=== PATIENT | male | born 1940 ===

== ENCOUNTER → 2023-04-22 11:59 | Outpatient (ROUT) | payer MEDICARE, SELFPAY ==
[2023-04-22 12:05] LABS: Add Manual Diff / Slide Review NO; Basophils Absolute Auto 0 /uL (0-100); Basophils Percent Auto 0.3 % (0-2); Eosinophils Absolute Auto 200 /uL (0-450); Eosinophils Percent Auto 1.5 % (2-4); Hematocrit 41.3 % (41-53); Hemoglobin 14.2 g/dL (13.5-17.5); Lymphocytes Absolute Auto 1000 /uL (1100-4500); Lymphocytes Percent Auto 7.5 % (25-40); Mean Corpuscular HGB Conc 34.3 % (30-36); Mean Corpuscular Hemoglobin 30.5 PG (26-34); Mean Corpuscular Volume 88.8 fL (80-100); Monocytes Absolute Auto 1200 /uL (0-900); Monocytes Percent Auto 8.7 % (3-14); Neutrophils Absolute Auto 11400 /uL (1500-7000); Platelet Count 232 X10^3/uL (150-400); Red Blood Cell Count 4.65 X10^6/uL (4.5-5.9); Red Cell Distribution Width 14.7 % (11.6-14.8); White Blood Cell Count 13.9 X10^3/uL (4.5-11.0)
[2023-04-22 12:11] LABS: Alanine Aminotransferase 50 IU/L (<50); Albumin 4.4 g/dL (3.5-5.0); Albumin Globulin Ratio 1.5 (1.0-2.8); Alkaline Phosphatase 80 U/L (38-126); Aspartate Aminotransferase 38 IU/L (17-59); BUN Creatinine Ratio 37.9 (6-22); Blood Urea Nitrogen 44 mg/dL (9-20); Calcium 9.7 mg/dL (8.4-10.2); Carbon Dioxide 18 mmol/L (22-32); Chloride 105 mmol/L (98-107); Estimated Glomerular Filt Rate > 60 mL/min (>60); Globulin 2.9 g/dL (1.7-4.1); Glucose 144 mg/dL (80-110); HEMOLYSIS 70 (0-50); Potassium 5.1 mmol/L (3.4-5.1); Sodium 137 mmol/L (137-145); Total Protein 7.3 g/dL (6.3-8.2)
== END ==
PROVIDERS: Family Provider Family Medicine Geriatric Medicine; PCP Family Medicine Geriatric Medicine; Visit Provider Nurse Practitioner Family
DX: R11.2 Nausea with vomiting, unspecified (principal)
CPT/HCPCS: 80053; 85025

== ENCOUNTER → 2023-04-22 20:40 | Outpatient (ROUT) | payer MEDICARE, SELFPAY ==
[2023-04-22 20:58] LABS: Appearance Urine UA CLEAR; Bilirubin Urine UA NEGATIVE (NEGATIVE); Color Urine UA YELLOW; Glucose Urine UA NEGATIVE (Negative); Ketones Urine UA TRACE (NEGATIVE); Leukocyte Esterase Urine UA NEGATIVE (NEGATIVE); Nitrite Urine UA NEGATIVE (Negative); Occult Blood Urine UA 2+ (Negative); Protein Urine UA NEGATIVE (Negative); Specific Gravity Urine UA >=1.030 (1.000-1.035); Urobilinogen Urine UA 0.2 E.U./dL (0.2)
[2023-04-22 21:36] LABS: Bacteria Urine None Seen; Culture Indicated Urine Cult Not Indicated; RBC Urine 10-30/HPF (0-5/HPF); Squamous Epithelial Cell Urine None Seen (0-5/HPF); WBC Urine 0-1/HPF (0-5/HPF)
== END ==
PROVIDERS: Visit Provider Nurse Practitioner Family
DX: N39.0 Urinary tract infection, site not specified (principal)
CPT/HCPCS: 81001

== ENCOUNTER 2023-04-24 13:00 | Inpatient (IN) | payer MEDICARE, SELFPAY ==
[2023-04-24] VITALS (77 sets, daily range): BP systolic 106–164; BP diastolic 41–72; PULSE 61–79; RESP 13–37; TEMP 35.8–36.8; O2SAT 92–99; BMI 26.6
--- NOTE | 2023-04-24 13:13 | ED_ITS ---
HPI - Abdominal Pain General Chief Complaint: Abdominal Pain Stated Complaint: Vomiting T-3 Time Seen by Provider: 04/24/23 13:10 History of Present Illness HPI narrative: Patient brought in by ambulance from [facility]. Has had 2 days of abdominal pain nausea and vomiting. Has been taking his home medications and diabetes medications. No bowel movement for the past 3 days. Complains of generalized abdominal pain. No hematemesis. No diarrhea. Denies any chest pain or back pain. He is at the assisted living portion of [facility]. He has been there for 3 years he states patient in no distress. Denies any recent fever cough cold or congestion. No urinary complaints other than he does have a indwelling Scott catheter but does not feel anything different. Patient is DNR DNI with selective treatment only. POLST form present Related Data Home Medications Medication Instructions Recorded Confirmed ASPIRIN (#ASPIRIN EC) 325 mg PO QDAY ##0 05/07/11 losartan 50 mg tablet (Cozaar) 50 mg PO QDAY ##0 05/07/11 Allergies Allergy/AdvReac Type Severity Reaction Status Date / Time No Known Drug Allergies Allergy Verified 04/24/23 13:17 Review of Systems Review of Systems Narrative: GENERAL: negative chills, fatigue, malaise, fever, sweats. HEENT: negative sinus pain, ear pain, sore throat RESPIRATORY: negative dyspnea, cough CARDIOVASCULAR: negative chest pain, palpitations GASTROINTESTINAL: Positive nausea, vomiting, abdominal pain : negative dysuria, frequency, hematuria MUSCULOSKELETAL: negative muscle or bony pain SKIN: negative rash, skin lesions NEUROLOGIC: negative weakness, numbness ROS Unobtainable: All systems reviewed & are unremarkable except as noted in HPI and below Patient History Social History Smoking Status: Never smoker Exam Narrative Exam Narrative: GENERAL: in no distress, not toxic not dyspneic HEAD: Normocephalic. EYES: Pupils equal round ENT: Mucous membranes moist. NECK: Trachea midline. CARDIOVASCULAR: Regular rate and rhythm RESPIRATORY: Clear to auscultation. Breath sounds equal bilaterally. No wheezes, rales, or rhonchi. GASTROINTESTINAL: Abdomen soft, non-tender, abdomen soft, nontender. Bowel sounds are present. No peritoneal signs. No pain out of portion to exam. EXTREMITIES: No gross deformities. BACK: No flank tenderness. NEURO: AOx3. Clear speech no facial droop SKIN: Warm and dry PSYCH: Not anxious, is cooperative Initial Vital Signs Initial Vital Signs: Vital Signs Temperature 97.4 F L 04/24/23 13:00 Pulse Rate 79 04/24/23 13:00 Respiratory Rate 14 04/24/23 13:00 Blood Pressure 125/55 L 04/24/23 13:00 Pulse Oximetry 99 04/24/23 13:00 Oxygen Delivery Method Room Air 04/24/23 13:00 Course Orders Ordered: ED Orders 04/24/23 13:11 EKG-12 Lead Stat 04/24/23 13:31 Complete Blood Count AUTO DIFF Stat Comprehensive Metabolic Panel Stat Lactate (Lactic Acid) Stat Lipase Stat Procalcitonin Stat Troponin & CK Cardiac Panel Stat 04/24/23 14:04 CT chest abd pel w con Stat 04/24/23 14:18 Urinalysis and Microscopic Stat Urine Culture Stat 04/24/23 14:45 Respiratory Panel (Film Array) Stat 04/24/23 15:19 Blood Culture Stat 04/24/23 15:45 BNP [NT-proBNP (BNP-Adult 18+)] Stat Troponin I Stat Discontinued Medications Sodium Chloride (Normal Saline 0.9%) 1,000 mls @ 1,000 mls/hr IV BOLUS ONE Stop: 04/24/23 14:10 Last Infusion: 04/24/23 14:30 Dose: Infused Documented By: Infusion: 04/24/23 14:00 Dose: 1,000 mls/hr Documented By: Infusion: 04/24/23 13:52 Dose: 0 mls/hr Documented By: Admin: 04/24/23 13:20 Dose: 1,000 mls/hr Documented By: PITO Ceftriaxone Sodium 2,000 mg/ (Sodium Chloride) 100 mls @ 200 mls/hr IV NOW ONE Stop: 04/24/23 16:27 Last Infusion: 04/24/23 17:26 Dose: Infused Documented By: Admin: 04/24/23 16:49 Dose: 200 mls/hr Documented By: PITO Sodium Chloride (Normal Saline 0.9%) 1,000 mls @ 1,000 mls/hr IV BOLUS ONE Stop: 04/24/23 18:17 Last Infusion: 04/24/23 18:14 Dose: Infused Documented By: Admin: 04/24/23 17:22 Dose: 1,000 mls/hr Documented By: PITO Ondansetron HCl (Ondansetron 4 Mg/2 Ml Inj) 4 mg IV NOW ONE Stop: 04/24/23 13:12 Last Admin: 04/24/23 13:21 Dose: 4 mg Documented By: PITO Vital Signs Vital signs: Vital Signs - 8 hr 04/24/23 13:00 04/24/23 13:09 04/24/23 13:10 Temperature 97.4 F L Pulse Rate 79 78 78 Respiratory Rate 14 24 25 H Blood Pressure 125/55 L Pulse Oximetry 99 98 97 Oxygen Delivery Method Room Air 04/24/23 13:15 04/24/23 13:15 04/24/23 13:20 Temperature Pulse Rate 73 72 Respiratory Rate 13 25 H Blood Pressure 106/49 L Pulse Oximetry 97 96 Oxygen Delivery Method Room Air 04/24/23 13:20 04/24/23 13:25 04/24/23 13:30 Temperature Pulse Rate 74 75 Respiratory Rate 22 23 Blood Pressure 111/48 L Pulse Oximetry 96 96 Oxygen Delivery Method 04/24/23 13:35 04/24/23 13:38 04/24/23 13:38 Temperature Pulse Rate 73 72 Respiratory Rate 24 23 Blood Pressure 117/56 L Pulse Oximetry 97 97 Oxygen Delivery Method Room Air 04/24/23 13:40 04/24/23 13:40 04/24/23 13:45 Temperature Pulse Rate 73 Respiratory Rate 33 H Blood Pressure 109/53 L 106/53 L Pulse Oximetry 97 Oxygen Delivery Method 04/24/23 13:45 04/24/23 13:57 04/24/23 13:58 Temperature Pulse Rate 72 75 77 Respiratory Rate 28 H 15 Blood Pressure Pulse Oximetry 97 95 Oxygen Delivery Method 04/24/23 13:58 04/24/23 14:00 04/24/23 14:00 Temperature Pulse Rate 74 Respiratory Rate 17 Blood Pressure 164/72 H 149/65 H Pulse Oximetry 98 Oxygen Delivery Method 04/24/23 14:05 04/24/23 14:05 04/24/23 14:10 Temperature Pulse Rate 70 Respiratory Rate 24 Blood Pressure 144/62 H 135/64 Pulse Oximetry 94 Oxygen Delivery Method 04/24/23 14:10 04/24/23 14:15 04/24/23 14:16 Temperature Pulse Rate 69 73 Respiratory Rate 22 37 H Blood Pressure 142/64 H Pulse Oximetry 93 Oxygen Delivery Method Room Air 04/24/23 14:16 04/24/23 14:20 04/24/23 14:21 Temperature Pulse Rate 72 72 74 Respiratory Rate 31 H 20 18 Blood Pressure Pulse Oximetry 99 97 Oxygen Delivery Method 04/24/23 14:21 04/24/23 14:25 04/24/23 14:25 Temperature Pulse Rate 71 Respiratory Rate 21 Blood Pressure 151/67 H 148/65 H Pulse Oximetry 97 Oxygen Delivery Method 04/24/23 14:31 04/24/23 14:31 04/24/23 14:35 Temperature Pulse Rate 70 69 Respiratory Rate 30 H 26 H Blood Pressure 135/62 Pulse Oximetry 94 98 Oxygen Delivery Method 04/24/23 14:40 04/24/23 14:40 04/24/23 14:45 Temperature Pulse Rate 67 70 Respiratory Rate 27 H 30 H Blood Pressure 125/59 L Pulse Oximetry 98 97 Oxygen Delivery Method 04/24/23 14:50 04/24/23 14:55 04/24/23 15:00 Temperature Pulse Rate 66 66 65 Respiratory Rate 21 29 H 29 H Blood Pressure Pulse Oximetry 98 98 98 Oxygen Delivery Method 04/24/23 15:00 04/24/23 15:05 04/24/23 15:15 Temperature Pulse Rate 70 68 Respiratory Rate 29 H 21 Blood Pressure 117/59 L Pulse Oximetry 98 98 Oxygen Delivery Method 04/24/23 15:20 04/24/23 15:21 04/24/23 15:21 Temperature Pulse Rate 65 67 Respiratory Rate 27 H 26 H Blood Pressure 134/63 Pulse Oximetry 98 97 Oxygen Delivery Method 04/24/23 15:25 04/24/23 15:30 04/24/23 15:35 Temperature Pulse Rate 65 65 68 Respiratory Rate 28 H 30 H Blood Pressure Pulse Oximetry 98 98 95 Oxygen Delivery Method 04/24/23 15:40 04/24/23 15:45 04/24/23 15:50 Temperature Pulse Rate 67 67 62 Respiratory Rate Blood Pressure Pulse Oximetry 94 98 97 Oxygen Delivery Method 04/24/23 15:55 04/24/23 16:00 04/24/23 16:04 Temperature Pulse Rate 62 61 Respiratory Rate Blood Pressure 137/64 Pulse Oximetry 98 96 Oxygen Delivery Method 04/24/23 16:04 04/24/23 16:05 04/24/23 16:10 Temperature Pulse Rate 63 62 61 Respiratory Rate Blood Pressure Pulse Oximetry 96 98 95 Oxygen Delivery Method 04/24/23 16:15 04/24/23 16:20 04/24/23 16:25 Temperature Pulse Rate 62 61 62 Respiratory Rate Blood Pressure Pulse Oximetry 97 97 97 Oxygen Delivery Method 04/24/23 16:30 04/24/23 16:35 04/24/23 16:40 Temperature Pulse Rate 70 64 61 Respiratory Rate Blood Pressure Pulse Oximetry 97 97 96 Oxygen Delivery Method 04/24/23 16:45 04/24/23 16:50 04/24/23 16:55 Temperature Pulse Rate 61 68 62 Respiratory Rate Blood Pressure Pulse Oximetry 97 95 97 Oxygen Delivery Method 04/24/23 16:56 04/24/23 16:56 04/24/23 16:56 Temperature 98.3 F Pulse Rate 64 Respiratory Rate Blood Pressure 137/65 Pulse Oximetry 95 Oxygen Delivery Method 04/24/23 17:00 04/24/23 17:00 04/24/23 17:05 Temperature Pulse Rate 61 64 Respiratory Rate Blood Pressure 133/58 L Pulse Oximetry 98 98 Oxygen Delivery Method 04/24/23 17:10 04/24/23 17:15 04/24/23 17:20 Temperature Pulse Rate 61 62 62 Respiratory Rate Blood Pressure Pulse Oximetry 98 94 94 Oxygen Delivery Method 04/24/23 17:21 04/24/23 17:21 Temperature Pulse Rate 63 Respiratory Rate 28 H Blood Pressure 138/65 Pulse Oximetry 96 Oxygen Delivery Method Room Air MDM - Abdominal Pain Lab Data 04/24/23 13:31 04/24/23 13:31 Labs: Lab Results 04/24/23 04/24/23 04/24/23 Range/Units 13:31 14:18 14:45 WBC 13.1 H (4.5-11.0) X10^3/uL RBC 4.40 L (4.5-5.9) X10^6/uL Hgb 13.4 L (13.5-17.5) g/dL Hct 39.3 L (41-53) % MCV 89.3 (80-100) fL MCH 30.4 (26-34) PG MCHC 34.1 (30-36) % RDW 14.7 (11.6-14.8) % Plt Count 213 (150-400) X10^3/uL Neut % (Auto) 83.6 H (50-75) % Lymph % (Auto) 4.6 L (25-40) % [place] % (Auto) 9.7 (3-14) % Eos % (Auto) 1.7 L (2-4) % Baso % (Auto) 0.4 (0-2) % Neut # (Auto) 44477 H (8966-4258) /uL Lymph # (Auto) 600 L (7130-6558) /uL [place] # (Auto) 1300 H (0-900) /uL Eos # (Auto) 200 (0-450) /uL Baso # (Auto) 100 (0-100) /uL Sodium 134 L (137-145) mmol/L Potassium 5.3 H (3.4-5.1) mmol/L Chloride 99 (98-107) mmol/L Carbon Dioxide 24 (22-32) mmol/L BUN 47 H (9-20) mg/dL Creatinine 1.23 (0.66-1.25) mg/dL Estimated GFR 58 L (>60) mL/min BUN/Creatinine Ratio 38.2 H (6-22) Glucose 353 H D (80-110) mg/dL Lactate 4.5 H* (0.7-2.1) mmol/L Calcium 9.9 (8.4-10.2) mg/dL Total Bilirubin 1.8 H (0.2-1.3) mg/dL AST 30 (17-59) IU/L ALT 43 (<50) IU/L Alkaline Phosphatase 78 (38-126) U/L Total Creatine Kinase < 20 L (55-170) U/L Troponin I < 0.012 (0.01-0.034) ng/mL NT-Pro-B Natriuret Pep (<450) pg/mL Total Protein 7.4 (6.3-8.2) g/dL Albumin 4.3 (3.5-5.0) g/dL Globulin 3.1 (1.7-4.1) g/dL Albumin/Globulin Ratio 1.4 (1.0-2.8) Lipase 141 (23-300) U/L Procalcitonin 0.16 (<0.5) ng/mL Urine Color Yellow Urine Appearance Clear Urine pH 5.5 (4.5-8.0) Ur Specific [place] 1.010 (1.000-1.035) Urine Protein Negative (Negative) Urine Glucose (UA) 1+ H (Negative) g/dL Urine Ketones Negative (NEGATIVE) Urine Occult Blood 3+ H (Negative) Urine Nitrate Negative (Negative) Urine Bilirubin Negative (NEGATIVE) Urine Urobilinogen 0.2 (0.2) E.U./dL Ur Leukocyte Esterase Trace H (NEGATIVE) Urine RBC 5-10/hpf H (0-5/HPF) Urine WBC 5-10/hpf H (0-5/HPF) Ur Squamous Epith Cells 1-5 /hpf (0-5/HPF) Amorphous Sediment 1+ Urine Bacteria Few (2-10) H (None) Ur Culture Indicated? Specimen cultured Chlamy pneumoniae PCR Not detected (Not Detect) Adenovirus (PCR) Not detected (Not Detect) B.parapertussis DNA PCR Not detected (Not Detecte) Coronavirus OC43 (PCR) Not detected (Not Detect) Coronavirus HKU1 (PCR) Not detected (Not Detect) Coronavirus 229E (PCR) Not detected (Not Detect) SARS-CoV-2 (PCR) Not detected (Not Detecte) Coronavirus NL63 (PCR) Not detected (Not Detect) Human Metapneumovir PCR Not detected (Not Detect) Influenza Type A (PCR) Not detected (Not Detect) Influenza Type B (PCR) Not detected (Not Detect) M. pneumoniae (PCR) Not detected (Not Detect) Parainfluenza 1 (PCR) Not detected (Not Detect) Parainfluenza 2 (PCR) Not detected (Not Detect) Parainfluenza 3 (PCR) Not detected (Not Detect) Parainfluenza 4 (PCR) Not detected (Not Detect) RSV (PCR) Not detected (Not Detect) Entero/Rhino (PCR) Not detected (Not Detect) 04/24/23 04/24/23 Range/Units 15:45 16:35 WBC (4.5-11.0) X10^3/uL RBC (4.5-5.9) X10^6/uL Hgb (13.5-17.5) g/dL Hct (41-53) % MCV (80-100) fL MCH (26-34) PG MCHC (30-36) % RDW (11.6-14.8) % Plt Count (150-400) X10^3/uL Neut % (Auto) (50-75) % Lymph % (Auto) (25-40) % [place] % (Auto) (3-14) % Eos % (Auto) (2-4) % Baso % (Auto) (0-2) % Neut # (Auto) (6731-7716) /uL Lymph # (Auto) (3673-2768) /uL [place] # (Auto) (0-900) /uL Eos # (Auto) (0-450) /uL Baso # (Auto) (0-100) /uL Sodium (137-145) mmol/L Potassium (3.4-5.1) mmol/L Chloride (98-107) mmol/L Carbon Dioxide (22-32) mmol/L BUN (9-20) mg/dL Creatinine (0.66-1.25) mg/dL Estimated GFR (>60) mL/min BUN/Creatinine Ratio (6-22) Glucose (80-110) mg/dL Lactate 3.2 H (0.7-2.1) mmol/L Calcium (8.4-10.2) mg/dL Total Bilirubin (0.2-1.3) mg/dL AST (17-59) IU/L ALT (<50) IU/L Alkaline Phosphatase (38-126) U/L Total Creatine Kinase (55-170) U/L Troponin I < 0.012 (0.01-0.034) ng/mL NT-Pro-B Natriuret Pep 253 (<450) pg/mL Total Protein (6.3-8.2) g/dL Albumin (3.5-5.0) g/dL Globulin (1.7-4.1) g/dL Albumin/Globulin Ratio (1.0-2.8) Lipase (23-300) U/L Procalcitonin (<0.5) ng/mL Urine Color Urine Appearance Urine pH (4.5-8.0) Ur Specific [place] (1.000-1.035) Urine Protein (Negative) Urine Glucose (UA) (Negative) g/dL Urine Ketones (NEGATIVE) Urine Occult Blood (Negative) Urine Nitrate (Negative) Urine Bilirubin (NEGATIVE) Urine Urobilinogen (0.2) E.U./dL Ur Leukocyte Esterase (NEGATIVE) Urine RBC (0-5/HPF) Urine WBC (0-5/HPF) Ur Squamous Epith Cells (0-5/HPF) Amorphous Sediment Urine Bacteria (None) Ur Culture Indicated? Chlamy pneumoniae PCR (Not Detect) Adenovirus (PCR) (Not Detect) B.parapertussis DNA PCR (Not Detecte) Coronavirus OC43 (PCR) (Not Detect) Coronavirus HKU1 (PCR) (Not Detect) Coronavirus 229E (PCR) (Not Detect) SARS-CoV-2 (PCR) (Not Detecte) Coronavirus NL63 (PCR) (Not Detect) Human Metapneumovir PCR (Not Detect) Influenza Type A (PCR) (Not Detect) Influenza Type B (PCR) (Not Detect) M. pneumoniae (PCR) (Not Detect) Parainfluenza 1 (PCR) (Not Detect) Parainfluenza 2 (PCR) (Not Detect) Parainfluenza 3 (PCR) (Not Detect) Parainfluenza 4 (PCR) (Not Detect) RSV (PCR) (Not Detect) Entero/Rhino (PCR) (Not Detect) Point of care testing: Point of Care Testing Glucose POC 267 MDM Narrative Medical decision making narrative: Patient brought in by ambulance from [facility]. Has had 2 days of abdominal pain nausea and vomiting. Has been taking his home medications and diabetes medications. No bowel movement for the past 3 days. Complains of generalized abdominal pain. No hematemesis. No diarrhea. Denies any chest pain or back pain. He is at the assisted living portion of [facility]. He has been there for 3 years he states patient in no distress. Denies any recent fever cough cold or congestion. No urinary complaints other than he does have a indwelling Scott catheter but does not feel anything different. Patient is DNR DNI with selective treatments only. POLST form present After history and exam CBC CMP lipase EKG troponin CT chest abdomen pelvis Zofran normal saline MDM CC: Abdominal pain nausea and vomiting Complicating co-morbidities: Diabetes Data collected from: Patient Medical records reviewed: No recent visit for this complaint Differential considered: Includes but not limited to VA dissection bowel obstruction bowel perforation colitis diverticulitis appendicitis pancreatitis Exam documented above, pertinent findings include: Nontender abdomen Lab Test results independently reviewed as above. Pertinent findings: WBC 13.1 hemoglobin 13.4 sodium 134 potassium 5.3 BUN 47 creatinine 1.23 GFR 58 glucose 353 lactic acid 4.5 total bilirubin 1.8 troponin less than 0.012 AST 30 ALT 43 procalcitonin 0.16 Urinalysis negative ketones negative nitrate trace leukocyte esterase Viral panel negative Repeat lactic acid 3.2 Independently reviewed EKG normal sinus rhythm rate [address] elevation or depression Imaging studies independently reviewed: CT chest abdomen pelvis small areas of opacity left lung base could be infectious. Compress bladder and thickened wall with luminal air secondary to Scott catheter. Consultations: 4:[address] Monroy, general surgery, he will follow in consult 4:[address] Thompson, hospitalist, will evaluate patient for admission Treatments: Zofran, 2 L normal saline Rocephin Re-evaluations: Time 4:28 p.m.. Patient is still awake alert. However failed swallow test. May be due to dementia. Keeping NPO at this time. Informed him and he does agree for admission. Patient has early sepsis. Unknown origin. IV antibiotics have been started Discussion: Appropriate for admission for observation and possible early sepsis. IV antibiotics have been started. IV fluids have been given. No vomiting at this time. Patient does agree for admission. Review with hospitalist agrees for admission. Review with general surgery and will follow in consult. Diagnosis: Abdominal pain Discharge Plan Departure Patient Disposition: Admitted as Observation Clinical Impression: Abdominal pain Qualifiers: Abdominal location: generalized Qualified Code(s): R10.84 - Generalized abdominal pain Admit Date/Time: 04/24/23 17:24 Admit Provider: Paras Thompson
[2023-04-24] MEDS: SODIUM CHLORIDE 0.9% 1,000 ML 1000 ML IV ×2 (13:20→17:22)
[2023-04-24] MEDS: ONDANSETRON 4 MG/2 ML INJ IV (13:21)
[2023-04-24 13:50] LABS: Add Manual Diff / Slide Review NO; Basophils Absolute Auto 100 /uL (0-100); Basophils Percent Auto 0.4 % (0-2); Eosinophils Absolute Auto 200 /uL (0-450); Eosinophils Percent Auto 1.7 % (2-4); Hematocrit 39.3 % (41-53); Hemoglobin 13.4 g/dL (13.5-17.5); Lymphocytes Absolute Auto 600 /uL (1100-4500); Lymphocytes Percent Auto 4.6 % (25-40); Mean Corpuscular HGB Conc 34.1 % (30-36); Mean Corpuscular Hemoglobin 30.4 PG (26-34); Mean Corpuscular Volume 89.3 fL (80-100); Monocytes Absolute Auto 1300 /uL (0-900); Monocytes Percent Auto 9.7 % (3-14); Neutrophils Absolute Auto 11000 /uL (1500-7000); Neutrophils Percent Auto 83.6 % (50-75); Platelet Count 213 X10^3/uL (150-400); Red Cell Distribution Width 14.7 % (11.6-14.8); White Blood Cell Count 13.1 X10^3/uL (4.5-11.0)
[2023-04-24 14:02] LABS: HEMOLYSIS < 15 (0-50)
--- NOTE | 2023-04-24 14:04 | DI.CT.S_ITS ---
PROCEDURE: CT CHEST ABD PEL W CON INDICATIONS: IV contrast only/sepsis TECHNIQUE: After the administration of oral and intravenous contrast, axial sections acquired from the supraclavicular neck to the pubic symphysis. Coronal and sagittal reformats were performed. For radiation dose reduction, the following was used: automated exposure control, adjustment of mA and/or kV according to patient size. COMPARISON: [facility], CT, IVP (ABD & PEL WWO CONTRAST), 12/11/2013, 13:44. [facility], CT, KIDNEY/ URETER/BLADDER, 07/16/2012, 8:54. FINDINGS: Image quality: Excellent. CHEST: Lower Neck: No enlarged lymph nodes. Thyroid: Within normal limits. Axillae: No enlarged lymph nodes. Chest Wall: Unremarkable. Lungs and Airways: Patchy areas of opacity some appearing ground-glass in appearance are prominent most notable in the right base. Pleura: No pneumothorax or pleural effusions. Heart: Heart size is normal. No pericardial effusion. Thoracic Vessels: The aorta and pulmonary arteries demonstrate normal size. Mediastinum and Frannie: No enlarged lymph nodes. Esophagus: No wall thickening. No hiatal hernia. ABDOMEN: Liver: Unremarkable. Gallbladder: Removed. Biliary ducts: Unremarkable. Pancreas: Unremarkable. Spleen: Unremarkable. Adrenal Glands: Unremarkable. Kidneys and Ureters: Unremarkable. Stomach and Bowel: Stomach, small bowel loops, and colon are unremarkable. Peritoneum: No abnormal intraperitoneal fluid. No free air. Ventral Wall: No hernia. Abdominal Nodes: No retroperitoneal or mesenteric adenopathy by size criteria. Vessels: Aorta and inferior vena cava are normal in size. PELVIS: Pelvic Organs: Prostate gland is enlarged.. Bladder: Bladder is collapsed with a Scott catheter. Air is present within the bladder. Pelvic Nodes: No enlarged lymph nodes. Miscellaneous: No inguinal hernias are seen. Bones: Unremarkable. IMPRESSION: 1. Small areas opacity are present within the left lung base. While some are thought to be related to dependent change. Others appear somewhat ground-glass in appearance which can be indicative of infection/inflammation. Recommend interval follow-up to document resolution. 2. Compressed bladder with thickened wall and luminal air. While this could be secondary to Scott catheter. Similar appearance can be seen with cystitis and clinical correlation is recommended. 3. Diverticulosis. Dictated by: Rachael Joseph M.D. on 04/24/2023 at 14:18 Approved by: Rachael Joseph M.D. on 04/24/2023 at 14:27
[2023-04-24 14:07] LABS: Alanine Aminotransferase 43 IU/L (<50); Albumin 4.3 g/dL (3.5-5.0); Albumin Globulin Ratio 1.4 (1.0-2.8); Alkaline Phosphatase 78 U/L (38-126); Aspartate Aminotransferase 30 IU/L (17-59); BUN Creatinine Ratio 38.2 (6-22); Bilirubin Total 1.8 mg/dL (0.2-1.3); Blood Urea Nitrogen 47 mg/dL (9-20); Calcium 9.9 mg/dL (8.4-10.2); Carbon Dioxide 24 mmol/L (22-32); Chloride 99 mmol/L (98-107); Creatine Kinase < 20 U/L (55-170); Estimated Glomerular Filt Rate 58 mL/min (>60); Globulin 3.1 g/dL (1.7-4.1); Glucose 353 mg/dL (80-110); Lipase 141 U/L (23-300); Potassium 5.3 mmol/L (3.4-5.1); Sodium 134 mmol/L (137-145); Total Protein 7.4 g/dL (6.3-8.2)
[2023-04-24 14:20] LABS: Troponin I < 0.012 ng/mL (0.01-0.034)
[2023-04-24 14:25] LABS: Appearance Urine UA CLEAR; Bilirubin Urine UA NEGATIVE (NEGATIVE); Color Urine UA YELLOW; Glucose Urine UA 1+ g/dL (Negative); Ketones Urine UA NEGATIVE (NEGATIVE); Leukocyte Esterase Urine UA TRACE (NEGATIVE); Nitrite Urine UA NEGATIVE (Negative); Occult Blood Urine UA 3+ (Negative); Protein Urine UA NEGATIVE (Negative); Urobilinogen Urine UA 0.2 E.U./dL (0.2); pH Urine UA 5.5 (4.5-8.0)
[2023-04-24 14:35] LABS: RBC Urine 5-10/HPF (0-5/HPF)
[2023-04-24 14:36] LABS: Amorphous Sediment Urine 1+; Bacteria Urine Few (2-10); Culture Indicated Urine Specimen Cultured; Squamous Epithelial Cell Urine 1-5 /HPF (0-5/HPF); WBC Urine 5-10/HPF (0-5/HPF)
[2023-04-24 14:55] LABS: Lactate (Lactic Acid) 4.5 mmol/L (0.7-2.1)
[2023-04-24 15:26] LABS: Procalcitonin 0.16 ng/mL (<0.5)
[2023-04-24 15:40] LABS: Adenovirus Not Detected (Not Detect); B. parapertussis Not Detected (Not Detecte); Bordetella pertussis Not Detected (Not Detect); Chlamydophila pneumoniae Not Detected (Not Detect); Coronavirus 229E Not Detected (Not Detect); Coronavirus HKU1 Not Detected (Not Detect); Coronavirus NL 63 Not Detected (Not Detect); Coronavirus OC43 Not Detected (Not Detect); Human Metapneumovirus Not Detected (Not Detect); Human Rhinovirus/Enterovirus Not Detected (Not Detect); Influenza A Not Detected (Not Detect); Influenza B Not Detected (Not Detect); Mycoplasma pneumoniae Not Detected (Not Detect); Parainfluenza Virus 1 Not Detected (Not Detect); Parainfluenza Virus 2 Not Detected (Not Detect); Parainfluenza Virus 3 Not Detected (Not Detect); Parainfluenza Virus 4 Not Detected (Not Detect); Respiratory Syncytial Virus Not Detected (Not Detect); SARS- CoV-2 Not Detected (Not Detecte)
[2023-04-24 16:16] LABS: NT-proBNP (BNP-Adult 18+) 253 pg/mL (<450); Troponin I < 0.012 ng/mL (0.01-0.034)
[2023-04-24 16:41] LABS: Reflexed Lactate in 2 Hours Y
[2023-04-24] MEDS: cefTRIAXone 2,000 MG in SODIUM CHLORIDE 0.9% 100 ML 200 MG IV (16:49)
[2023-04-24 17:01] LABS: Lactate 2HR (Lactic Acid Rflx) 3.2 mmol/L (0.7-2.1)
--- NOTE | 2023-04-24 20:38 | P.HP_ITS ---
History of Present Illness History of Present Illness Date Patient Seen: 04/24/23 Chief complaint: Vomiting T-3 Narrative: 83 y/o presented to ED from [facility] with complaints on abdominal pain that started 2 days ago. Initial workup in ED, CT abdomen including consultation with a surgeon, revealed UTI and sepsis. Patient confused on admission, unable to provide accurate history, likely encephalopathic. [facility] Medical History (Updated 04/24/23 @ 21:49 by Jose Luis Anne MD) HLD (hyperlipidemia) CAD (coronary artery disease) Enlarged prostate with urinary retention Diabetes HTN (hypertension) Social History household members: none Smoking Status: Never smoker alcohol intake: current Meds Home Medications and Allergies Home Medications Medication Instructions Recorded Confirmed Type ASPIRIN (#ASPIRIN EC) 325 mg PO QDAY ##0 05/07/11 04/24/23 History losartan 50 mg tablet (Cozaar) 50 mg PO QDAY ##0 05/07/11 04/24/23 History amlodipine 10 mg tablet 10 mg PO DAILY 04/24/23 04/24/23 History carvedilol 6.25 mg tablet 6.25 mg PO BID 04/24/23 04/24/23 History ciprofloxacin HCl 250 mg tablet 250 mg PO BID 04/24/23 04/24/23 History finasteride 5 mg tablet 5 mg PO DAILY 04/24/23 04/24/23 History metformin 1,000 mg tablet 1,000 mg PO BID 04/24/23 04/24/23 History nitroglycerin 0.4 mg sublingual 0.4 mg sublingual PRN PRN Pain 04/24/23 04/24/23 History tablet (Scale Score 1-3) rosuvastatin 10 mg tablet 10 mg PO ONCE PM 04/24/23 04/24/23 History spironolactone 50 mg tablet 50 mg PO DAILY 04/24/23 04/24/23 History tamsulosin 0.4 mg capsule 0.4 mg PO DAILY 04/24/23 04/24/23 History ticagrelor 90 mg tablet (Brilinta) 90 mg PO BID 04/24/23 04/24/23 History Allergies Allergy/AdvReac Type Severity Reaction Status Date / Time No Known Drug Allergies Allergy Verified 04/24/23 13:17 Review of Systems Review of Systems Narrative: Unobtainable due to encephalopathy Exam Vital Signs (past 8 hours): - 04/24/23 13:00 04/24/23 13:09 04/24/23 13:10 Temperature 97.4 F L Pulse Rate 79 78 78 Respiratory Rate 14 24 25 H Blood Pressure 125/55 L Pulse Oximetry 99 98 97 Oxygen Delivery Method Room Air Oxygen Flow Rate 04/24/23 13:15 04/24/23 13:15 04/24/23 13:20 Temperature Pulse Rate 73 72 Respiratory Rate 13 25 H Blood Pressure 106/49 L Pulse Oximetry 97 96 Oxygen Delivery Method Room Air Oxygen Flow Rate 04/24/23 13:20 04/24/23 13:25 04/24/23 13:30 Temperature Pulse Rate 74 75 Respiratory Rate 22 23 Blood Pressure 111/48 L Pulse Oximetry 96 96 Oxygen Delivery Method Oxygen Flow Rate 04/24/23 13:35 04/24/23 13:38 04/24/23 13:38 Temperature Pulse Rate 73 72 Respiratory Rate 24 23 Blood Pressure 117/56 L Pulse Oximetry 97 97 Oxygen Delivery Method Room Air Oxygen Flow Rate 04/24/23 13:40 04/24/23 13:40 04/24/23 13:45 Temperature Pulse Rate 73 Respiratory Rate 33 H Blood Pressure 109/53 L 106/53 L Pulse Oximetry 97 Oxygen Delivery Method Oxygen Flow Rate 04/24/23 13:45 04/24/23 13:57 04/24/23 13:58 Temperature Pulse Rate 72 75 77 Respiratory Rate 28 H 15 Blood Pressure Pulse Oximetry 97 95 Oxygen Delivery Method Oxygen Flow Rate 04/24/23 13:58 04/24/23 14:00 04/24/23 14:00 Temperature Pulse Rate 74 Respiratory Rate 17 Blood Pressure 164/72 H 149/65 H Pulse Oximetry 98 Oxygen Delivery Method Oxygen Flow Rate 04/24/23 14:05 04/24/23 14:05 04/24/23 14:10 Temperature Pulse Rate 70 Respiratory Rate 24 Blood Pressure 144/62 H 135/64 Pulse Oximetry 94 Oxygen Delivery Method Oxygen Flow Rate 04/24/23 14:10 04/24/23 14:15 04/24/23 14:16 Temperature Pulse Rate 69 73 Respiratory Rate 22 37 H Blood Pressure 142/64 H Pulse Oximetry 93 Oxygen Delivery Method Room Air Oxygen Flow Rate 04/24/23 14:16 04/24/23 14:20 04/24/23 14:21 Temperature Pulse Rate 72 72 74 Respiratory Rate 31 H 20 18 Blood Pressure Pulse Oximetry 99 97 Oxygen Delivery Method Oxygen Flow Rate 04/24/23 14:21 04/24/23 14:25 04/24/23 14:25 Temperature Pulse Rate 71 Respiratory Rate 21 Blood Pressure 151/67 H 148/65 H Pulse Oximetry 97 Oxygen Delivery Method Oxygen Flow Rate 04/24/23 14:31 04/24/23 14:31 04/24/23 14:35 Temperature Pulse Rate 70 69 Respiratory Rate 30 H 26 H Blood Pressure 135/62 Pulse Oximetry 94 98 Oxygen Delivery Method Oxygen Flow Rate 04/24/23 14:40 04/24/23 14:40 04/24/23 14:45 Temperature Pulse Rate 67 70 Respiratory Rate 27 H 30 H Blood Pressure 125/59 L Pulse Oximetry 98 97 Oxygen Delivery Method Oxygen Flow Rate 04/24/23 14:50 04/24/23 14:55 04/24/23 15:00 Temperature Pulse Rate 66 66 65 Respiratory Rate 21 29 H 29 H Blood Pressure Pulse Oximetry 98 98 98 Oxygen Delivery Method Oxygen Flow Rate 04/24/23 15:00 04/24/23 15:05 04/24/23 15:15 Temperature Pulse Rate 70 68 Respiratory Rate 29 H 21 Blood Pressure 117/59 L Pulse Oximetry 98 98 Oxygen Delivery Method Oxygen Flow Rate 04/24/23 15:20 04/24/23 15:21 04/24/23 15:21 Temperature Pulse Rate 65 67 Respiratory Rate 27 H 26 H Blood Pressure 134/63 Pulse Oximetry 98 97 Oxygen Delivery Method Oxygen Flow Rate 04/24/23 15:25 04/24/23 15:30 04/24/23 15:35 Temperature Pulse Rate 65 65 68 Respiratory Rate 28 H 30 H Blood Pressure Pulse Oximetry 98 98 95 Oxygen Delivery Method Oxygen Flow Rate 04/24/23 15:40 04/24/23 15:45 04/24/23 15:50 Temperature Pulse Rate 67 67 62 Respiratory Rate Blood Pressure Pulse Oximetry 94 98 97 Oxygen Delivery Method Oxygen Flow Rate 04/24/23 15:55 04/24/23 16:00 04/24/23 16:04 Temperature Pulse Rate 62 61 Respiratory Rate Blood Pressure 137/64 Pulse Oximetry 98 96 Oxygen Delivery Method Oxygen Flow Rate 04/24/23 16:04 04/24/23 16:05 04/24/23 16:10 Temperature Pulse Rate 63 62 61 Respiratory Rate Blood Pressure Pulse Oximetry 96 98 95 Oxygen Delivery Method Oxygen Flow Rate 04/24/23 16:15 04/24/23 16:20 04/24/23 16:25 Temperature Pulse Rate 62 61 62 Respiratory Rate Blood Pressure Pulse Oximetry 97 97 97 Oxygen Delivery Method Oxygen Flow Rate 04/24/23 16:30 04/24/23 16:35 04/24/23 16:40 Temperature Pulse Rate 70 64 61 Respiratory Rate Blood Pressure Pulse Oximetry 97 97 96 Oxygen Delivery Method Oxygen Flow Rate 04/24/23 16:45 04/24/23 16:50 04/24/23 16:55 Temperature Pulse Rate 61 68 62 Respiratory Rate Blood Pressure Pulse Oximetry 97 95 97 Oxygen Delivery Method Oxygen Flow Rate 04/24/23 16:56 04/24/23 16:56 04/24/23 16:56 Temperature 98.3 F Pulse Rate 64 Respiratory Rate Blood Pressure 137/65 Pulse Oximetry 95 Oxygen Delivery Method Oxygen Flow Rate 04/24/23 17:00 04/24/23 17:00 04/24/23 17:05 Temperature Pulse Rate 61 64 Respiratory Rate Blood Pressure 133/58 L Pulse Oximetry 98 98 Oxygen Delivery Method Oxygen Flow Rate 04/24/23 17:10 04/24/23 17:15 04/24/23 17:20 Temperature Pulse Rate 61 62 62 Respiratory Rate Blood Pressure Pulse Oximetry 98 94 94 Oxygen Delivery Method Oxygen Flow Rate 04/24/23 17:21 04/24/23 17:21 04/24/23 17:25 Temperature Pulse Rate 63 67 Respiratory Rate 28 H Blood Pressure 138/65 Pulse Oximetry 96 98 Oxygen Delivery Method Room Air Oxygen Flow Rate 04/24/23 17:30 04/24/23 17:35 04/24/23 17:40 Temperature Pulse Rate 68 69 68 Respiratory Rate Blood Pressure Pulse Oximetry 98 98 97 Oxygen Delivery Method Oxygen Flow Rate 04/24/23 17:40 04/24/23 17:45 04/24/23 17:50 Temperature Pulse Rate 69 66 Respiratory Rate Blood Pressure 148/66 H Pulse Oximetry 98 97 Oxygen Delivery Method Oxygen Flow Rate 04/24/23 17:55 04/24/23 18:00 04/24/23 18:00 Temperature Pulse Rate 66 64 Respiratory Rate Blood Pressure 148/67 H Pulse Oximetry 97 98 Oxygen Delivery Method Oxygen Flow Rate 04/24/23 18:05 04/24/23 18:10 04/24/23 18:15 Temperature Pulse Rate 70 66 72 Respiratory Rate Blood Pressure Pulse Oximetry 99 97 98 Oxygen Delivery Method Oxygen Flow Rate 04/24/23 18:20 04/24/23 18:21 04/24/23 18:21 Temperature Pulse Rate 63 65 Respiratory Rate Blood Pressure 150/67 H Pulse Oximetry 97 96 Oxygen Delivery Method Oxygen Flow Rate 04/24/23 18:25 04/24/23 18:30 04/24/23 18:35 Temperature Pulse Rate 67 64 68 Respiratory Rate 24 Blood Pressure Pulse Oximetry 99 99 97 Oxygen Delivery Method Oxygen Flow Rate 04/24/23 19:00 04/24/23 19:26 Temperature 96.4 F L Pulse Rate 62 66 Respiratory Rate 20 16 Blood Pressure 129/41 L 117/49 L Pulse Oximetry 92 97 Oxygen Delivery Method Oxygen Flow Rate 0 Oxygen Delivery Method Room Air Oxygen Flow Rate 0 Const Other: Laying in bed in no distress HENMT Other: Normocephalic Eyes Other: eomi Resp Other: normal respiratory effort Cardio Other: RRR GI Other: not distended Other: catheter Skin Other: w/o rashes Psych Other: confused, cognitive deficits Objective Labs 04/25/23 04:23 04/24/23 13:31 Labs: Laboratory Results - last 24 hr 04/24/23 04/24/23 04/24/23 13:31 14:18 14:45 WBC 13.1 H RBC 4.40 L Hgb 13.4 L Hct 39.3 L MCV 89.3 MCH 30.4 MCHC 34.1 RDW 14.7 Plt Count 213 Neut % (Auto) 83.6 H Lymph % (Auto) 4.6 L [place] % (Auto) 9.7 Eos % (Auto) 1.7 L Baso % (Auto) 0.4 Neut # (Auto) 20139 H Lymph # (Auto) 600 L [place] # (Auto) 1300 H Eos # (Auto) 200 Baso # (Auto) 100 Sodium 134 L Potassium 5.3 H Chloride 99 Carbon Dioxide 24 BUN 47 H Creatinine 1.23 Estimated GFR 58 L BUN/Creatinine Ratio 38.2 H Glucose 353 H D Lactate 4.5 H* Calcium 9.9 Total Bilirubin 1.8 H AST 30 ALT 43 Alkaline Phosphatase 78 Total Creatine Kinase < 20 L Troponin I < 0.012 NT-Pro-B Natriuret Pep Total Protein 7.4 Albumin 4.3 Globulin 3.1 Albumin/Globulin Ratio 1.4 Lipase 141 Procalcitonin 0.16 Urine Color Yellow Urine Appearance Clear Urine pH 5.5 Ur Specific [place] 1.010 Urine Protein Negative Urine Glucose (UA) 1+ H Urine Ketones Negative Urine Occult Blood 3+ H Urine Nitrate Negative Urine Bilirubin Negative Urine Urobilinogen 0.2 Ur Leukocyte Esterase Trace H Urine RBC 5-10/hpf H Urine WBC 5-10/hpf H Ur Squamous Epith Cells 1-5 /hpf Amorphous Sediment 1+ Urine Bacteria Few (2-10) H Ur Culture Indicated? Specimen cultured Chlamy pneumoniae PCR Not detected Adenovirus (PCR) Not detected B.parapertussis DNA PCR Not detected Coronavirus OC43 (PCR) Not detected Coronavirus HKU1 (PCR) Not detected Coronavirus 229E (PCR) Not detected SARS-CoV-2 (PCR) Not detected Coronavirus NL63 (PCR) Not detected Human Metapneumovir PCR Not detected Influenza Type A (PCR) Not detected Influenza Type B (PCR) Not detected M. pneumoniae (PCR) Not detected Parainfluenza 1 (PCR) Not detected Parainfluenza 2 (PCR) Not detected Parainfluenza 3 (PCR) Not detected Parainfluenza 4 (PCR) Not detected RSV (PCR) Not detected Entero/Rhino (PCR) Not detected 04/24/23 04/24/23 15:45 16:35 WBC RBC Hgb Hct MCV MCH MCHC RDW Plt Count Neut % (Auto) Lymph % (Auto) [place] % (Auto) Eos % (Auto) Baso % (Auto) Neut # (Auto) Lymph # (Auto) [place] # (Auto) Eos # (Auto) Baso # (Auto) Sodium Potassium Chloride Carbon Dioxide BUN Creatinine Estimated GFR BUN/Creatinine Ratio Glucose Lactate 3.2 H Calcium Total Bilirubin AST ALT Alkaline Phosphatase Total Creatine Kinase Troponin I < 0.012 NT-Pro-B Natriuret Pep 253 Total Protein Albumin Globulin Albumin/Globulin Ratio Lipase Procalcitonin Urine Color Urine Appearance Urine pH Ur Specific [place] Urine Protein Urine Glucose (UA) Urine Ketones Urine Occult Blood Urine Nitrate Urine Bilirubin Urine Urobilinogen Ur Leukocyte Esterase Urine RBC Urine WBC Ur Squamous Epith Cells Amorphous Sediment Urine Bacteria Ur Culture Indicated? Chlamy pneumoniae PCR Adenovirus (PCR) B.parapertussis DNA PCR Coronavirus OC43 (PCR) Coronavirus HKU1 (PCR) Coronavirus 229E (PCR) SARS-CoV-2 (PCR) Coronavirus NL63 (PCR) Human Metapneumovir PCR Influenza Type A (PCR) Influenza Type B (PCR) M. pneumoniae (PCR) Parainfluenza 1 (PCR) Parainfluenza 2 (PCR) Parainfluenza 3 (PCR) Parainfluenza 4 (PCR) RSV (PCR) Entero/Rhino (PCR) Assessment & Plan Assessment and plan (1) Acute metabolic encephalopathy: Status: Acute Plan: Presumably, not knowing his baseline, 2nd to UTI (2) UTI (urinary tract infection) due to urinary indwelling catheter: Status: Acute Plan: Rocephin Monitor cultures (3) HTN (hypertension): Status: Acute Plan: Coreg and norvasc on hold while septic (4) Diabetes: Status: Acute Plan: metformin (5) Enlarged prostate with urinary retention: Status: Acute Plan: Flomax, Finasteride, Scott, urology f/o (6) Sepsis: Status: Acute Plan: see UTI (7) CAD (coronary artery disease): Status: Acute Plan: ASA, Brillinta, NTG prn Coreg on hold due to relative hypotension / sepsis (8) HLD (hyperlipidemia): Status: Acute Quality VTE Deep Vein Thrombosis/Pulmonary Embolism Present on Admission: No
[2023-04-24] MEDS: LACTATED RINGERS 1,000 ML 100 ML IV (21:28)
[2023-04-24] MEDS: METFORMIN HCL 500 MG TABLET 1000 MG PO (21:28)
[2023-04-24] MEDS: SENNOSIDES 8.6 MG TABLET 17.2 MG PO (21:29)
[2023-04-25 04:56] LABS: Add Manual Diff / Slide Review NO; Basophils Absolute Auto 0 /uL (0-100); Basophils Percent Auto 0.5 % (0-2); Eosinophils Absolute Auto 300 /uL (0-450); Eosinophils Percent Auto 3.3 % (2-4); Hematocrit 32.1 % (41-53); Hemoglobin 11.3 g/dL (13.5-17.5); Lymphocytes Absolute Auto 800 /uL (1100-4500); Lymphocytes Percent Auto 7.9 % (25-40); Mean Corpuscular HGB Conc 35.2 % (30-36); Mean Corpuscular Hemoglobin 31.1 PG (26-34); Mean Corpuscular Volume 88.4 fL (80-100); Monocytes Absolute Auto 1200 /uL (0-900); Monocytes Percent Auto 11.4 % (3-14); Neutrophils Absolute Auto 7800 /uL (1500-7000); Neutrophils Percent Auto 76.9 % (50-75); Platelet Count 154 X10^3/uL (150-400); Red Blood Cell Count 3.63 X10^6/uL (4.5-5.9); Red Cell Distribution Width 14.4 % (11.6-14.8); White Blood Cell Count 10.2 X10^3/uL (4.5-11.0)
[2023-04-25] MEDS: LACTATED RINGERS 1,000 ML 100 ML IV (05:36)
[2023-04-25 05:40] LABS: BUN Creatinine Ratio 38.2 (6-22); Blood Urea Nitrogen 34 mg/dL (9-20); Calcium 8.8 mg/dL (8.4-10.2); Carbon Dioxide 24 mmol/L (22-32); Chloride 106 mmol/L (98-107); Estimated Glomerular Filt Rate > 60 mL/min (>60); Glucose 179 mg/dL (80-110); HEMOLYSIS < 15 (0-50); Potassium 4.4 mmol/L (3.4-5.1); Sodium 137 mmol/L (137-145)
[2023-04-25 08:00] VITALS: BP 151/52; PULSE 67; RESP 16; TEMP 36.3; O2SAT 99
[2023-04-25] MEDS: ASPIRIN EC 325 MG TABLET PO (11:36)
[2023-04-25] MEDS: METFORMIN HCL 500 MG TABLET 1000 MG PO ×2 (11:36→17:25)
[2023-04-25] MEDS: ENOXAPARIN 30 MG/0.3 ML SYRINGE SUBCUT (11:37)
[2023-04-25] MEDS: FINASTERIDE 5 MG TABLET PO (11:37)
--- NOTE | 2023-04-25 12:01 | ST.IPCSEOM ---
Visit Care Team Role Provider Type Kalyani Jarvis MD Family Provider Physician Primary Care Provider Specialty: Family Practice Address: [place] [id number], [place], [address] Email: [email or web address] Mark Johnson MD Emergency Provider Physician Referring Provider Specialty: Emergency Medicine Address: [address] [place] [address], [address] Email: [email or web address], DO Admit Provider Physician Attending Provider Specialty: Internal Medicine Address: [address] [place] [address], [address] Email: [email or web address] Diagnoses Sepsis, unspecified organism (04/24/23) Type 2 diabetes mellitus without complications (04/24/23) Hyperlipidemia, unspecified (04/24/23) Metabolic encephalopathy (04/24/23) Essential (primary) hypertension (04/24/23) Atherosclerotic heart disease of [place] coronary artery without angina pectoris (04/24/23) Urinary tract infection, site not specified (04/24/23) Benign prostatic hyperplasia with lower urinary tract symptoms (04/24/23) Other retention of urine (04/24/23) Infection and inflammatory reaction due to indwelling urethral catheter, initial encounter (04/24/23) Past Medical History (Last Updated 04/24/23 @ 21:49 by Jose Luis Anne MD) CAD (coronary artery disease) (Medical) Diabetes (Medical) Enlarged prostate with urinary retention (Medical) HLD (hyperlipidemia) (Medical) HTN (hypertension) (Medical) Speech-Language Pathology Swallow Evaluation [employer] Clinical Swallow Evaluation Start: 04/25/23 10:30 Freq: Status: Active Protocol: Document 04/25/23 11:39 (Rec: 04/25/23 12:01 [id number]) Clinical Swallow Evaluation Session Time Visit Start Time 10:45 Visit Stop Time 11:45 Total Visit Minutes 60 Referral Referring Provider hospitalist Reason for Referral concerns for dysphagia Setting Assessment Location Acute Care Visit Type Note Type Initial evaluation Next Note Type Next Note Type Treatment Note Patient Information Identification Type Name,Date of Reported by Patient/Caregiver Other Symptoms Coughing,Difficulty swallowing liquids,Difficulty swallowing solids Comment Pt denies previous swallowing difficulty, CT scan revealed ground glass opacities/infiltrates lower right lobe. Current Diet NPO The IDDSI Framework Protocol: IDDSI.1 Objective Assessment Mental Status Cooperative,Lethargic Oral Integrity Oral residue Dentition Missing teeth,Decay Lip Function Mild impairment Observation of Lips at Rest Left sided weakness/Drooping Pucker Reduced range of motion, Reduced strength Lip Retraction Reduced range of motion Alternating Pucker/Lip Retraction Incoordination Tongue Function Mild impairment Observations of Tongue at Rest Within normal limits Tongue Protrusion Reduced strength Tongue Lateralization Reduced strength, Incoordination Jaw Function Within normal limits Observation of Jaw at Rest Within normal limits Observations of Hard/Soft Palate Within normal limits Respiratory Sufficiency Mild impairment Comment Facial asymmetry very mild, left side, overall reduced movement bilaterally. Dentition in poor condition, missing several rear teeth. Reduced strength and ROM of lips and tongue. Pt demonstrated difficulty w coordination under direction likely d/t fatigue. Overall weakened but rotary chew with mild oral residue. Palatal elevation observed. Oral hygiene poor, pt states he does not brush his teeth daily and thought it may have been months. Voice weakened but WFL Food and Liquid Trials Liquids Trialed Thin (IDDSI 0) Solid Trials Purred (IDDSI 4),Regular ( IDDSI 7) Administration Type Tea spoon,Cup single sip, Controlled cup sip,Straw,Needs some assistance,Dependent feeding Oral Impairment Mildly impaired Pharyngeal Impairment Moderately impaired Pharyngeal Phase Comments cough noted with trials of thin liquids, ST trialed strategies of small sips via straw, and via teaspoon with cues to hold and to swallow hard'. No cough noted with trials of teaspoon and cues to swallow hard. Pt demonstrated difficulty w self regulation of small sips. No overt s/s of asp/pen noted with solids, however d/t extreme fatigue, recommend thins/water only, puree solids following agressive oral care, with feeding assist. Fatigue/Endurance Severe fatigue Comment Pt does not appear stong enough to participate in an MBS today, ST to revisit tomorrow. The IDDSI Framework Protocol: IDDSI.1 Findings Swallowing Function Oropharyngeal phase dysphagia Severity of Swallow Impairment Mildly-moderately impaired Contributing Factors to Swallow Reduced alertness or attention Impairment ,Difficulty following directions,Reduced oral strength/coordination/ sensation,Impaired airway protection Prognosis Fair Comment Pt demonstrated oropharyngeal dysphagia as demonstrated by poor bolus control and s/s of asp/pen with thin liquids, mitigated by compensatory strategies of liquids via teaspoon and cues to swallow hard, with fully upright positioning. While silent aspiration cannot be ruled out without an MBS, pt does not appear strong enough today to participate. ST educated pt on risks vs benefits of thickened liquids (slowed transit so he may not need to rely on teaspoon liquid intake but with an increased risk of aspiration if they are aspirated while thin liquids following oral care reduces the risk of any aspiration developing into a PNA, especially if liquids are kept with water only). Pt in agreement with the oral care/ thin water at his point, with review as he gets stronger. While pt stated he has had a stroke, deficits appear largely related to generalized weakness, rather than functional deficits d/t a stroke. Pt appears safest on puree solids given extreme fatigue, and is in agreement for this diet level, again to be reviewed as he becomes stronger. Pt at this time will require 1:1 assist with all intake. ST to reassess again tomorrow. Impact on Safety and Functioning Risk for aspiration,Risk for inadequate nutrition/hydration Recommendations Instrumental Assessment Yes Swallowing Treatment Yes Frequency 5x/wk Recommended Solids Pureed (IDDSI 4) Recommended Liquids Thin (IDDSI 0) Other Recommendations water only via teaspoon following aggressive oral care Safety Precautions/Swallowing Feed only when alert,Remain Recommendations upright (90 degrees) during all oral intake,1 to 1 feeding assistance Medication Recommendations As Tolerated Education Patient/Caregiver Education Patient expressed understanding of evaluation, Patient expressed agreement with goals & treatment plans Goals Short-term Goals 1.Patient will utilize compensatory strategies given mild/mod verbal, and visual cues with optimum safety and efficiency of swallowing function on P.O. intake with min/no overt signs and symptoms of aspiration for the highest appropriate diet level 2. As able, Patient will complete a Modified Barium Swallow Evaluation of the Swallow to fully assess physiology and anatomy of the swallow and to determine the appropriate diet and/or appropriately targeted rehabilitation exercises. Long-term Goals Patient will maintain adequate hydration/nutrition with optimum safety and efficiency of swallowing function on P.O. intake with min/no overt signs and symptoms of aspiration for the highest appropriate diet level
[2023-04-25 12:42] VITALS: BP 135/43; PULSE 65; RESP 15; TEMP 36.8; O2SAT 96
--- NOTE | 2023-04-25 13:52 | PT.IIE ---
Current Diagnoses Sepsis, unspecified organism (04/24/23) Type 2 diabetes mellitus without complications (04/24/23) Hyperlipidemia, unspecified (04/24/23) Metabolic encephalopathy (04/24/23) Essential (primary) hypertension (04/24/23) Atherosclerotic heart disease of cheesh-na coronary artery without angina pectoris (04/24/23) Urinary tract infection, site not specified (04/24/23) Benign prostatic hyperplasia with lower urinary tract symptoms (04/24/23) Other retention of urine (04/24/23) Infection and inflammatory reaction due to indwelling urethral catheter, initial encounter (04/24/23) Medical History (Last Updated 04/24/23 @ 21:49 by Jose Luis Anne MD) CAD (coronary artery disease) Diabetes Enlarged prostate with urinary retention HLD (hyperlipidemia) HTN (hypertension) Physical Therapy Inpatient Evaluation/Re-Eval M1 PT/OT-IP Prior Functional Status Start: 04/25/23 13:57 Freq: NEEDED Status: Active Protocol: Document 04/25/23 13:57 AB (Rec: 04/25/23 14:39 AB [id number]) Medical Review Prior Functional Status Medical History Reviewed Yes Communication Pt is able to communicate needs but is poor historian. Mobility and Gait Pt is poor historian and is unable to provide accurate PLOF. He states he uses a w/c and walker to get around, but unable to describe when he uses each. However, per [facility] pt did not ambulate and only performed stand pivot transfer. Activities of Daily Living and IADL's Pt is poor historian and is unable to provide accurate PLOF. Prior Functional Level (Other details) Pt is poor historian and is unable to provide accurate PLOF. Social History Household Members none Living Arrangements Assisted Living Additional Social History Comment Pt was previously at [facility] prior to admission, but lived at [facility] prior to that. Pt is poor historian and is unable gather social history. M2 PT-IP Current Condition Start: 04/25/23 13:57 Freq: NEEDED Status: Active Protocol: Document 04/25/23 13:57 AB (Rec: 04/25/23 14:39 AB [id number]) Physical Therapy Current Condition Current Condition Evaluation Date 04/25/23 Treatment Diagnosis abdominal pain; generalized weakness Onset Date 04/24/23 M3 PT-IP Subjective Start: 04/25/23 13:57 Freq: NEEDED Status: Active Protocol: Document 04/25/23 13:57 AB (Rec: 04/25/23 14:39 AB [id number]) Subjective Physical Therapy Visit Type Type Initial Evaluation Visit Start Time 13:30 Visit Stop Time 13:52 Total Visit Minutes 22 Physical Therapy Visit Comments Patient Comments Pt is agreeable to PT eval. He denies having any pain currently. Therapy Pain Assessment Pain When Pain Assessed At Rest Pain Present Pain Present Denied Pain M4 PT-IP Mobility and Gait Start: 04/25/23 13:57 Freq: NEEDED Status: Active Protocol: Document 04/25/23 13:57 AB (Rec: 04/25/23 14:39 AB [id number]) PT-Bed Mobility Assessment Rolling Level of Assist Maximal Assistance,1 Person Assistance,2 Person Assistance Supine to Sit Supine to Sit Maximum Assistance,2 Person Assistance,Head of Bed Elevated,Bedrails Sit to Supine Sit to Supine Moderate Assistance,2 Person Assistance Scooting Scooting Up and Down in Bed Dependent PT-Transfer Assessment Comments Mobility Comments The pt required maxA x2 to roll in bed and to sit at EOB due to reports of weakness and fatigue, with assistance from PT and [employer]. Once sitting at EOB, the pt required modA for static sitting balance, but then is able to sit modified independent while holding on to bed rails. He requires cues to open his eyes while performing mobility and sitting at EOB. PT encouraged pt to trial STS, however pt refused and laid back in bed before PT and [employer] were ready to assist him to bed demonstrating impulsivity. The pt was then assisted to comfortable position in bed with modA x2, but was dependent to scoot up in bed. At end of session, pt was left in care of [employer]. Gait Assessment Comments Gait Comments Unable to perform due to weakness and fatigue. Stair Climbing Assessment Comments Stair Climbing Comments Unable to perform due to weakness and fatigue. PT-Balance Assessment Sitting Balance and Reactions Static Sitting Balance Ability Fair Dynamic Sitting Balance Ability Poor M5 PT-IP Objective Assessments Start: 04/25/23 13:57 Freq: NEEDED Status: Active Protocol: Document 04/25/23 13:57 AB (Rec: 04/25/23 14:39 AB [id number]) Orientation Orientation/Cognition Level of Alertness Lethargic Orientation Name Language Function Ability No Deficits Noted Safety Awareness Decreased Safety Awareness Memory Description Short Term Impaired Gross Range of Motion Upper Extremity ROM Assessment Within Functional Limits Lower Extremity ROM Assessment Within Functional Limits Strength Upper Extremity Strength Assessment Bilaterally Impaired Lower Extremity Strength Assessment Bilaterally Impaired M6 PT-IP Treatment Start: 04/25/23 13:57 Freq: NEEDED Status: Active Protocol: Document 04/25/23 13:57 AB (Rec: 04/25/23 14:39 AB [id number]) Physical Therapy Treatment Education Education Provided Safety Brace Education Patient M7 PT-IP Assessment and Plan Start: 04/25/23 13:57 Freq: NEEDED Status: Active Protocol: Document 04/25/23 13:57 AB (Rec: 04/25/23 14:39 AB [id number]) PT Summary Assessment and Plan Potential Rehabilitation Potential Fair Status of Condition at Evaluation Evolving Summary Impairments Pain,ROM,Strength,Balance,Bed Mobility,Transfers,Gait, Activity Tolerance Assessment Summary Mark King is an 83 year old male patient with abdominal pain and generalized weakness, who is a resident at [facility]. The pt demonstrates significant weakness and endurance deficits, as he is currently maxA x2 to dependent to perform bed mobility. No further mobility was performed due to weakness and fatigue. Per [facility], the pt's PLOF was very limited, as he only performed stand pivot transfers and was mostly sedentary. Based on his current level of function, PT recommends discharge to SNF to improve his level of function at this time. He would benefit from skilled PT during his hospitalization to improve to his highest level of function. Goals Bed Mobility Goal Minimal Assistance,Moderate Assistance Transfer Goal Maximal Assistance,Front Wheeled Walker Other Goals Pt to perform bed mobility with min-modA with use of bed rails in order to decrease risk for wounds. Pt to perform stand pivot transfer with maxA x2 and FWW in order to show improving strength and ability to perform functional mobility. Days to Meet Goals 10 Frequency of Treatment Frequency Of Treatment Once a Day Treatment Plan Physical Therapy Treatment Plan Bed Mobility Training,Transfer Training,Gait Training, Therapeutic Exercise,Balance Retraining,Discharge Planning, Hot or Cold Pack,Neuromuscular Re-ed,Coordination Retraining ,Manual Therapy Precautions Other Precautions Fall risk Discharge Recommendations PT Discharge Recommendations SNF Rehab
--- NOTE | 2023-04-25 14:23 | P.PN_ITS ---
Subjective Subjective Interval history: 83 M with PMH of DM, HTN, BPH, CAD, cognitive impairment who presented with abdominal pain. He presented from [facility]. He reports improvement today, with no abdominal pain. He does feel a bit weak and tired but overall feeling improved. Exam Vital Signs (past 8 hours): - 04/25/23 08:00 04/25/23 12:42 Temperature 97.4 F L 98.2 F Pulse Rate 67 65 Respiratory Rate 16 15 Blood Pressure 151/52 H 135/43 L Pulse Oximetry 99 96 Oxygen Flow Rate 0 0 Oxygen Delivery Method Room Air Oxygen Flow Rate 0 Narrative Exam Narrative: General:? Patient is well developed and well nourished, in no distress at this time. HEENT:? Normocephalic, atraumatic, extraocular muscles intact, oral pharynx is clear and mucous membranes are moist. Neck: supple and symmetric, trachea is midline, no cervical adenopathy. Negative for JVD Chest:? Normal AP diameter and contour without kyphoscoliosis, no tachypnea, equal chest rise bilaterally. Lungs:? CTA b/l no wheezing rhonchi or rales. Cardio:?RRR no m/r/g. Abdomen: S NT ND. No CVA tenderness. Musculoskeletal:? Muscle strength and tone are equal within normal limits, no deformity. Extremities: No edema or joint effusions. No cyanosis or clubbing. Skin:? Pale,? Warm to touch,dry and intact without rashes, ulcerations or petechiae.? Neuro:? Alert and orientated to name, location, and year.? sensation to touch intact in all extremities, no gross deficits noted of cranial nerves. Psych:? Patient has a well-kept appearance, appropriate affect, mental status attitude thought context and judgment are appropriate for age. Objective Labs 04/25/23 04:23 04/25/23 04:23 Labs: Laboratory Results - last 24 hr 04/24/23 04/24/23 04/24/23 13:31 14:18 14:45 WBC RBC Hgb Hct MCV MCH MCHC RDW Plt Count Neut % (Auto) Lymph % (Auto) [place] % (Auto) Eos % (Auto) Baso % (Auto) Neut # (Auto) Lymph # (Auto) [place] # (Auto) Eos # (Auto) Baso # (Auto) Sodium Potassium Chloride Carbon Dioxide BUN Creatinine Estimated GFR BUN/Creatinine Ratio Glucose Lactate 4.5 H* Calcium Troponin I NT-Pro-B Natriuret Pep Procalcitonin 0.16 Urine Color Yellow Urine Appearance Clear Urine pH 5.5 Ur Specific Schuyler 1.010 Urine Protein Negative Urine Glucose (UA) 1+ H Urine Ketones Negative Urine Occult Blood 3+ H Urine Nitrate Negative Urine Bilirubin Negative Urine Urobilinogen 0.2 Ur Leukocyte Esterase Trace H Urine RBC 5-10/hpf H Urine WBC 5-10/hpf H Ur Squamous Epith Cells 1-5 /hpf Amorphous Sediment 1+ Urine Bacteria Few (2-10) H Ur Culture Indicated? Specimen cultured Chlamy pneumoniae PCR Not detected Adenovirus (PCR) Not detected B.parapertussis DNA PCR Not detected Coronavirus OC43 (PCR) Not detected Coronavirus HKU1 (PCR) Not detected Coronavirus 229E (PCR) Not detected SARS-CoV-2 (PCR) Not detected Coronavirus NL63 (PCR) Not detected Human Metapneumovir PCR Not detected Influenza Type A (PCR) Not detected Influenza Type B (PCR) Not detected M. pneumoniae (PCR) Not detected Parainfluenza 1 (PCR) Not detected Parainfluenza 2 (PCR) Not detected Parainfluenza 3 (PCR) Not detected Parainfluenza 4 (PCR) Not detected RSV (PCR) Not detected Entero/Rhino (PCR) Not detected 04/24/23 04/24/23 04/25/23 15:45 16:35 04:23 WBC 10.2 RBC 3.63 L Hgb 11.3 L Hct 32.1 L MCV 88.4 MCH 31.1 MCHC 35.2 RDW 14.4 Plt Count 154 Neut % (Auto) 76.9 H Lymph % (Auto) 7.9 L [place] % (Auto) 11.4 Eos % (Auto) 3.3 Baso % (Auto) 0.5 Neut # (Auto) 7800 H Lymph # (Auto) 800 L [place] # (Auto) 1200 H Eos # (Auto) 300 Baso # (Auto) 0 Sodium 137 Potassium 4.4 Chloride 106 Carbon Dioxide 24 BUN 34 H Creatinine 0.89 Estimated GFR > 60 BUN/Creatinine Ratio 38.2 H Glucose 179 H D Lactate 3.2 H Calcium 8.8 Troponin I < 0.012 NT-Pro-B Natriuret Pep 253 Procalcitonin Urine Color Urine Appearance Urine pH Ur Specific Schuyler Urine Protein Urine Glucose (UA) Urine Ketones Urine Occult Blood Urine Nitrate Urine Bilirubin Urine Urobilinogen Ur Leukocyte Esterase Urine RBC Urine WBC Ur Squamous Epith Cells Amorphous Sediment Urine Bacteria Ur Culture Indicated? Chlamy pneumoniae PCR Adenovirus (PCR) B.parapertussis DNA PCR Coronavirus OC43 (PCR) Coronavirus HKU1 (PCR) Coronavirus 229E (PCR) SARS-CoV-2 (PCR) Coronavirus NL63 (PCR) Human Metapneumovir PCR Influenza Type A (PCR) Influenza Type B (PCR) M. pneumoniae (PCR) Parainfluenza 1 (PCR) Parainfluenza 2 (PCR) Parainfluenza 3 (PCR) Parainfluenza 4 (PCR) RSV (PCR) Entero/Rhino (PCR) [facility] Medical History (Updated 04/24/23 @ 21:49 by Jose Luis Anne MD) HLD (hyperlipidemia) CAD (coronary artery disease) Enlarged prostate with urinary retention Diabetes HTN (hypertension) Social History household members: none Smoking Status: Never smoker alcohol intake: current Assessment & Plan Assessment & Plan narrative: (1) Sepsis secondary to acute cystitis with Acute metabolic encephalopathy and HORACIO - patient's mentation has improved with initial therapies. - continue cefitraxone. - follow up any cultures - continue to follow WBC elevation and renal function with CBC and CMP. - PT / OT evaluation ordered - Cr 1.21 on admit, improved to 0.89 today. (2) HTN (hypertension): Continue to hold home coreg, alodipine, losartan in setting of sepsis. Restart if hypertensive. (4) Diabetes: okay to continue metformin. Initial BMP >300, improved today. Continue to follow blood glucose levels. (5) Enlarged prostate with urinary retention: Flomax, Finasteride, Scott, urology f/o (7) CAD (coronary artery disease): continue home ASA, Brillinta, NTG prn Coreg on hold due to relative hypotension / sepsis (8) HLD (hyperlipidemia): continue home statin Code: Full, surrogate is patient's family Rito. DVT: Lovenox daily Dispo: admitted inpatient, hopeful for return to SNF tomorrow depending on progress over the coming day. Quality VTE Deep Vein Thrombosis/Pulmonary Embolism Present on Admission: No
--- NOTE | 2023-04-25 14:55 | CM.DANOTE ---
Initial DCP Assessment Note Pt is an 83 yo male, had been living at [facility] for years until recent CVA, hospitalization and transfer to [facility] 3 weeks ago. Patient presents from [facility] with Acute metabolic encephalopathy, admitted for management of UTI. PCP: uLcia Jarvis Payer: MCR/ULZ MARINAP Reviewed chart, placed call to patient's sister Jennifer Covarrubias P [phone] who had discussed patient with nursing this morning, received following information: Patient had been living at [facility] until recently. Patient had recent stroke, requiring hospitalization and eventual transfer to [facility]. Sister unable to give this CHIP CRUSHER OPERATOR a valid report on baseline cognition, explains that patient has been somewhat private for quite some time. Sister jennifer lives in [place], Jennifer reports that patient's DPOA is kong Davis P [phone], who lives in [place]. Patient has a brother that lives in [place] that is not involved. Patient has never had a spouse or children. Placed call to Shayla at [facility]. Patient is welcome back to [facility] for ongoing rehab. December faxed over patient's POLST which states DNR and patient's advanced directives naming nephew Grzegorz DPOA. Plan: Anticipate that patient will discharge back to [facility] Saturday, need to review plan with patient's nephew/DPOA Grzegorz. Likely via wheelchair van, no PASRR needed. Therapies consulted and recommending return to SNF level of care and rehab. SADA Goins Discharge Planning/Care Management CM Discharge Assessment Start: 04/25/23 11:26 Freq: Status: Active Protocol: Document 04/25/23 11:26 LILLIE (Rec: 04/25/23 14:55 LILLIE [id number]) Discharge Planning Assessment Assigned Block Engraver SADA Walker DPESTUARDO/Assigned Designee Name Roque Daviskong Contact Information [phone] Advance Directives? No Advance Directives on File No: Requested History Provided By Family Member,Medical Record Prior Living Arrangements Skilled Nurse Facility Household Members none Facility Name Admitted From: [facility] Independent with ADL's No Is patient alert and oriented? Yes: Some mild confusion at base per [facility] staff Patient/Family Preference Care Home Facility Comment Back to [facility] to continue rehab Barriers to Discharge No Comment Accepted back to [facility] , no PASRR needed Discharge Plan Care Home Facility Transportation Arrangement Wheelchair van Referrals Initiated None needed
--- NOTE | 2023-04-25 15:04 | OT.IPNOTE ---
Spoke to nurse at [facility] regarding pt's status. Per nurse pt needing assist for feeding,grooming,and two person assist for all dressing ,toileting , and bathing needs. Pt just orientated to his name and at times able to follow simple commands. Pt therefore at baseline for OT needs and therefore discharge OT eval orders, hospitalist and case management coordinator informed. No charge
[2023-04-25 16:30] VITALS: BP 140/57; PULSE 86; RESP 20; TEMP 36.2; O2SAT 96
[2023-04-25] MEDS: cefTRIAXone 1,000 MG in SODIUM CHLORIDE 0.9% 100 ML 200 MG IV (17:25)
[2023-04-25 19:00] VITALS: BP 148/61; PULSE 88; RESP 18; TEMP 36.2; O2SAT 96
--- NOTE | 2023-04-25 19:19 | PC.NURSE ---
RT notified to assess patient while sleeping appeared to have obvious signs of sleep apnea (holding breath for a couple of seconds) however 02 saturation recovered quickly and no recommendations were made.
[2023-04-25 21:01] VITALS: BP 154/57; PULSE 84; RESP 16; TEMP 35.9; O2SAT 96
[2023-04-25] MEDS: SENNOSIDES 8.6 MG TABLET 17.2 MG PO (21:18)
[2023-04-25] MEDS: ATORVASTATIN 20 MG TABLET 10 MG PO (21:18)
[2023-04-25] MEDS: TAMSULOSIN 0.4 MG CAPSULE PO (21:18)
[2023-04-26 01:00] VITALS: PULSE 89; RESP 16; TEMP 36.4; O2SAT 97
[2023-04-26 05:14] LABS: Add Manual Diff / Slide Review NO; Basophils Absolute Auto 0 /uL (0-100); Basophils Percent Auto 0.5 % (0-2); Eosinophils Absolute Auto 300 /uL (0-450); Eosinophils Percent Auto 3.8 % (2-4); Hematocrit 30.5 % (41-53); Hemoglobin 10.7 g/dL (13.5-17.5); Lymphocytes Absolute Auto 800 /uL (1100-4500); Mean Corpuscular Hemoglobin 30.8 PG (26-34); Monocytes Absolute Auto 800 /uL (0-900); Monocytes Percent Auto 9.9 % (3-14); Neutrophils Absolute Auto 6200 /uL (1500-7000); Neutrophils Percent Auto 75.8 % (50-75); Platelet Count 145 X10^3/uL (150-400); Red Blood Cell Count 3.47 X10^6/uL (4.5-5.9); Red Cell Distribution Width 14.5 % (11.6-14.8); White Blood Cell Count 8.1 X10^3/uL (4.5-11.0)
[2023-04-26 05:19] LABS: BUN Creatinine Ratio 25.7 (6-22); Blood Urea Nitrogen 19 mg/dL (9-20); Calcium 8.5 mg/dL (8.4-10.2); Carbon Dioxide 26 mmol/L (22-32); Chloride 104 mmol/L (98-107); Estimated Glomerular Filt Rate > 60 mL/min (>60); Glucose 135 mg/dL (80-110); HEMOLYSIS < 15 (0-50); Potassium 4.5 mmol/L (3.4-5.1); Sodium 135 mmol/L (137-145)
[2023-04-26 05:31] VITALS: BP 151/53; PULSE 74; RESP 17; TEMP 36.3; O2SAT 97
[2023-04-26 08:21] VITALS: BP 157/53
[2023-04-26] MEDS: ASPIRIN EC 325 MG TABLET PO (08:53)
[2023-04-26] MEDS: ENOXAPARIN 40 MG/0.4 ML SYRINGE SUBCUT (08:53)
[2023-04-26] MEDS: FINASTERIDE 5 MG TABLET PO (08:53)
[2023-04-26] MEDS: METFORMIN HCL 500 MG TABLET 1000 MG PO (08:53)
--- NOTE | 2023-04-26 10:15 | CM.DPC ---
Addendum entered by Bethanie Moran R.N. 04/26/23 10:41: Received DC orders, received signed med sheets. Confirmed pick up man time for 1130, received report number. Updated nurseShadia. Faxed over DC Summary and signed med sheets to [facility]. Original Note: DCP Cont: Patient may be medically ready for discharge today. Spoke to Shayla at [facility], can pick him up at 11:30, updated Dr. Armendariz, and white board at [facility], have number for report, will give to nurseJennifer. Awaiting DC orders, once received, will send to [facility]. No PASSR needed, since patient is a readmit. P: DCP to continue to follow. Plan is for patient to return back to [facility] today, once orders are receive with pick up man scheduled at 1130. Bethanie Moran RN/Area Cleaner
--- NOTE | 2023-04-26 10:27 | PM.DS.1 ---
History of Present Illness History of Present Illness Date Patient Seen: 04/26/23 Time Patient Seen: 10:27 Chief complaint: Vomiting T-3 Narrative: Per admitting provider, 83 y/o presented to ED from [facility] with complaints on abdominal pain that started 2 days ago. Initial workup in ED, CT abdomen including consultation with a surgeon, revealed UTI and sepsis. Patient confused on admission, unable to provide accurate history, likely encephalopathic. Discharge Providers Provider Date of admission: 04/24/23 17:24 Discharge Date: 04/26/23 Primary care physician: Kalyani Jarvis MD Consults: 04/25/23 05:50 Consult to Speech Therapy Evaluate & Treat Comment: failed bedside swallow eval. Physician Instructions: Evaluate and treat 04/25/23 10:39 Consult to Occupational Therapy Evaluate & Treat Comment: Physician Instructions: Evaluate and treat Consult to Physical Therapy Evaluate & Treat Comment: Physician Instructions: Evaluate and Treat Discharge provider: Peyman Armendariz DO Summary Hospital Course Discharge Diagnosis: (1) Sepsis secondary to acute cystitis with Acute metabolic encephalopathy and HORACIO (2) HTN (hypertension): (3) Diabetes, type 2 (4) Enlarged prostate with urinary retention: (5) CAD (coronary artery disease): (6) HLD (hyperlipidemia): Hospital Course: 83 M with PMH of DM, HTN, BPH, CAD, cognitive impairment who presented with abdominal pain and counfusion from local SNF. He was found to have sepsis due to a urinary tract infection with his encephalopathy and HORACIO improving with fluids and antibiotic therapies. Given improvement on ceftriaxone, he was discharged to complete total 7 day course of antibiotics with cefdinir. Urine cultures have a 20K CFU gram positive bacilli, and was not further evaluated in the lab. He can resume home antihypertensives after discharge after many were held here. No other home medications were changed during this admission. Continued outpatient follow up with urology is recommended. Time Spent with Patient Time spent: Greater than 30 minutes Exam Vital Signs (past 8 hours): - 04/26/23 05:31 04/26/23 08:21 Temperature 97.4 F L Pulse Rate 74 Respiratory Rate 17 Blood Pressure 151/53 H 157/53 H Pulse Oximetry 97 Oxygen Delivery Method Room Air Oxygen Flow Rate 0 Narrative Exam Narrative: General:? Patient is well developed and well nourished, in no distress at this time. HEENT:? Normocephalic, atraumatic, extraocular muscles intact, oral pharynx is clear and mucous membranes are moist. Neck: supple and symmetric, trachea is midline, no cervical adenopathy. Negative for JVD Chest:? Normal AP diameter and contour without kyphoscoliosis, no tachypnea, equal chest rise bilaterally. Lungs:? CTA b/l no wheezing rhonchi or rales. Cardio:?RRR no m/r/g. Abdomen: S NT ND. No CVA tenderness. Musculoskeletal:? Muscle strength and tone are equal within normal limits, no deformity. Extremities: No edema or joint effusions. No cyanosis or clubbing. Skin:? Pale,? Warm to touch,dry and intact without rashes, ulcerations or petechiae.? Neuro:? Alert and orientated to name, location, and year.? sensation to touch intact in all extremities, no gross deficits noted of cranial nerves. Psych:? Patient has a well-kept appearance, appropriate affect, mental status attitude thought context and judgment are appropriate for age. Objective Labs 04/26/23 04:35 04/26/23 04:35 Labs: Laboratory Results - last 24 hr 04/26/23 04:35 WBC 8.1 RBC 3.47 L Hgb 10.7 L Hct 30.5 L MCV 88.0 MCH 30.8 MCHC 35.0 RDW 14.5 Plt Count 145 L Neut % (Auto) 75.8 H Lymph % (Auto) 10.0 L [place] % (Auto) 9.9 Eos % (Auto) 3.8 Baso % (Auto) 0.5 Neut # (Auto) 6200 Lymph # (Auto) 800 L [place] # (Auto) 800 Eos # (Auto) 300 Baso # (Auto) 0 Sodium 135 L Potassium 4.5 Chloride 104 Carbon Dioxide 26 BUN 19 Creatinine 0.74 Estimated GFR > 60 BUN/Creatinine Ratio 25.7 H Glucose 135 H Calcium 8.5 PFSH Medical History (Updated 04/24/23 @ 21:49 by Jose Luis Anne MD) HLD (hyperlipidemia) CAD (coronary artery disease) Enlarged prostate with urinary retention Diabetes HTN (hypertension) Social History household members: none Smoking Status: Never smoker alcohol intake: current Discharge Plan Discharge Plan Patient Disposition: SNF Transfer to: [facility] Provider Discharge Comment: 83 M admitted to the hospital with presumed sepsis due to likely UTI. Cultures without growth but improved with ceftriaxone. Complete treatment for presumed complicated UTI with another 5 days of cefdinir at discharge. Discharge orders & Medications Prescriptions: New cefdinir 300 mg capsule 300 mg PO BID 5 Days Qty: 10 0RF Continued losartan [Cozaar] 50 MG tablet 50 mg PO QDAY Qty: 0 ASPIRIN (#ASPIRIN EC) 325 mg PO QDAY Qty: 0 carvedilol 6.25 mg tablet 6.25 mg PO BID tamsulosin 0.4 mg capsule 0.4 mg PO DAILY amlodipine 10 mg tablet 10 mg PO DAILY metformin 1,000 mg tablet 1,000 mg PO BID nitroglycerin 0.4 mg tablet, sublingual 0.4 mg sublingual PRN PRN (Reason: Pain (Scale Score 1-3)) finasteride 5 mg tablet 5 mg PO DAILY spironolactone 50 mg tablet 50 mg PO DAILY rosuvastatin 10 mg tablet 10 mg PO ONCE PM Brilinta 90 mg tablet 90 mg PO BID Discontinued ciprofloxacin HCl 250 mg tablet 250 mg PO BID Follow up/Referrals: Kalyani Jarvis MD [Primary Care Provider] - Discharge Health Status Multidrug resistant organism: No MDRO Diet/Activity/Treatments Diet: Diet as Tolerated and Regular Liquid consistency: Normal/Thin Food texture: Blenderized or pureed Diet comment: Heart healthy, pureed with thin liquids, 1:1 feeds. Continue CRUTCHER HELPER therapy Activity: As tolerated, no restrictions Special Rehabilitation Services Reason for rehabilitation: Recovery r/t decondition Rehab type: Physical therapy, Occupational therapy and Speech therapy Visit Report/Discharge Packet Instructions: How to Care for Your Scott Catheter -- Male Stand Alone Forms: Patient Portal/API Discharge Data Primary Care Provider: Kalyani Jarvis Discharges patient from system. Discharge Date/Time: 04/26/23 11:45 Quality VTE Deep Vein Thrombosis/Pulmonary Embolism Present on Admission: No
--- NOTE | 2023-04-26 10:32 | ST.IPDYTX ---
Visit Care Team Role Provider Type Kalyani Jarvis MD Family Provider Physician Primary Care Provider Specialty: Family Practice Address: [facility], [address] [place] [address], [place], [address] Email: [email or web address] Mark Johnson MD Emergency Provider Physician Referring Provider Specialty: Emergency Medicine Address: [address] [place] [address], [address] Email: [email or web address] [email or web address] Provider Physician Attending Provider Specialty: Internal Medicine Address: [address] [place] [address], [id number] Email: [email or web address] [email or web address] Treatment SCIENCE WRITER Dysphagia Treatment Start: 04/25/23 10:30 Freq: Status: Active Protocol: Document 04/26/23 10:19 (Rec: 04/26/23 10:31 [id number]) Dysphagia Treatment Session Time Visit Start Time 09:45 Visit Stop Time 10:20 Total Visit Minutes 35 Setting Assessment Location Acute Care Visit Type Note Type Treatment Note Treatment Liquids Trialed Thin (IDDSI 0) Solids Trialed Purred (IDDSI 4) Administration Type Tea Spoon,Cup Single Sip,Straw The IDDSI Framework Protocol: IDDSI.1 Assessment Patient Response to Treatment Good Assessment of Improvement Pt noted to be more alert but still easily fatigued. Sg Nicholas present in room during session. ST provided family education re current ST findings and POC. ST reviewed and retrained on compensatory strategies of small sips and swallow hard. ST facilitated trials of thin liquid (water) via teaspoon and via small straw. Pt able to hold cup independently but demonstrated mild difficulty w recall of strategies. With use of small sip/swallow hard cues, pt demonstrated min/no overt s/s of asp/pen with thin liquids. Pt benefits from cues every other sip or so to maintain use consistently. Pt continues to be unable to self feed, and demonstrated moderate fatigue following 1/2 container of pudding. Pt demonstrated mild oral and possible pharyngeal residue w pudding, cleared with extra swallows and liquid wash. No cough noted w pudding, except for following the liquid wash d/t to large of a sip. Given schedule of aggressive oral care, pt appears appropriate to have water at bedside via coffee cup w lid and small straw to increase hydration, recommend remaining on water only and puree solids w feeding assist over the weekend. Recommendations Recommendations Continue Current Diet Comment small straw with cues for water Liquids Order Thin (IDDSI 0) Diet Order Pureed (IDDSI 4) Medication Recommendations As Tolerated Additional Dietary Needs 1:1 Assistance,Reminders to Use Strategies Aspiration Precautions Recommended Precautions Upright at 90 Degrees,Small Bites/Sips
--- NOTE | 2023-04-26 11:42 | PT-IP ANOTE ---
checked on pt and pt about to d/c to SN[facility]. Not able to see pt for PT prior to d/c
--- NOTE | 2023-04-26 12:04 | PC.NURSE ---
Discharge Note Patient A&O to baseline, VSS, patient agreeable to discharge plan back to . PIV discontinued. Patient requiring moderate assist to dress and pack all belongings. Coccyx pressure dressing change prior to discharge. Report given to facility. Facility aware of new skin breakdown upon arrival to this hospital. Updated on new diet requirements and PO antibiotic regimen. All questions concerns addressed. Patient hoyered into wheelchair and taken down by facility staff.
== END 2023-04-26 11:45 | DRG 871 ==
LOC: ED 16:32 → AC 04-25 07:51
PROVIDERS: Internal Medicine; Admitting Provider Student in an Organized Health Care Education/Training Program; Emergency Provider Emergency Medicine; Family Provider Family Medicine Geriatric Medicine; PCP Family Medicine Geriatric Medicine; Referring Provider Emergency Medicine; Visit Provider Student in an Organized Health Care Education/Training Program
DX: A41.9 Sepsis, unspecified organism (principal); G93.41 Metabolic encephalopathy; N30.00 Acute cystitis without hematuria; N17.9 Acute kidney failure, unspecified; E11.9 Type 2 diabetes mellitus without complications; I10 Essential (primary) hypertension; N40.1 Benign prostatic hyperplasia with lower urinary tract symptoms; R33.8 Other retention of urine; I25.10 Atherosclerotic heart disease of native coronary artery without angina pectoris; E78.5 Hyperlipidemia, unspecified; R65.20 Severe sepsis without septic shock; B96.89 Other specified bacterial agents as the cause of diseases classified elsewhere; Z79.84 Long term (current) use of oral hypoglycemic drugs
CPT/HCPCS: 36415; 71260; 74177; 80048; 80053; 81001; 82550; 82962; 83605; 83690; 83880; 84145; 84484; 85025; 87040; 87086; 87633; 92526; 92610; 93005; 96365; 96375; 97162; 99284; J0696; J1650; J2405